=== PATIENT | male | born 1985 | race Caucasian/White ===

== ENCOUNTER 2020-03-17 11:00 | Emergency (ER) | payer OTHER ==
[~2020-03-17] VITALS: Ht 177.8 cm; Wt 80.9 kg
[2020-03-17 11:07] VITALS: TEMP 97.8
[2020-03-17] MEDS ORDERED: PREDNISONE20 MG PO (11:46)
[2020-03-17 12:23] VITALS: BP 122/71; PULSE 72
== END 2020-03-17 12:24 | disposition home or self-care (01) ==
LOC: COL.ER 11:00
DX: L25.9 Unspecified contact dermatitis, unspecified cause (principal); Z91.011 Allergy to milk products